=== PATIENT | female | born 1980 | race African-American/Black ===

== ENCOUNTER 2016-08-31 09:37 | Emergency (ER) | payer OTHER ==
[~2016-08-31] VITALS: Ht 165.1 cm; Wt 59.1 kg
[2016-08-31 11:20] LABS: APPEARANCE,URINE CLEAR (CLEAR); GLUCOSE, URINE (UA) NEGATIVE (NEGATIVE); KETONES,URINE 15 mg/dL (NEGATIVE); LEUKOCYTE ESTERASE ,URINE NEGATIVE (NEGATIVE); OCCULT BLOOD,URINE NEGATIVE (NEGATIVE); PROTEIN,URINE NEGATIVE (NEGATIVE)
[2016-08-31 11:21] LABS: ADD UA MICROSCOPIC NO
[2016-08-31] MEDS ORDERED: KETOROLAC TROMETHAMINE 60 MG/2 ML VIAL IM ONE (11:45)
[2016-08-31 12:51] VITALS: BP 120/82
== END 2016-08-31 12:52 | disposition home or self-care (01) ==
LOC: EMS 09:40
DX: S33.9XXA Sprain of unspecified parts of lumbar spine and pelvis, initial encounter (principal); V43.52XA Car driver injured in collision with other type car in traffic accident, initial encounter; Y93.89 Activity, other specified; Y99.8 Other external cause status; Y92.89 Other specified places as the place of occurrence of the external cause
CPT/HCPCS: 81003; 96372; 99283; J1885